=== PATIENT | male | born 1995 | race Caucasian/White ===

== ENCOUNTER 2020-10-13 17:30 | Outpatient (CLI) | payer OTHER, SELFPAY ==
--- NOTE | ~2020-10-13 | CT_ITS ---
EXAMINATION: CT IAC/mastoids BI wo con DATE: 10/13/2020 18:00 INDICATION: Left-sided cholesteatoma. TECHNIQUE: Computed tomography (CT) of the temporal bones was performed without intravenous contrast. Automated exposure control and iterative reconstruction technique were employed. The dose-length pro duct was 209.36 mGy-cm. COMPARISON: Sinuses CT 05/08/2014 FINDINGS: RIGHT TEMPORAL BONE: The internal auditory canal, cochlea, vestibule, and vestibular canal are normal. There is dehiscence of superior semicircular canal. The carotid canal, jugular bulb, facial nerve course, ossicles, tymp anic membrane, Prussak space, scutum, and external auditory canal are normal. There is a small right mastoid effusion. LEFT TEMPORAL BONE: The internal auditory canal, cochlea, vestibule, semicircular canals, vestibular aqueduct, and facial nerve course are normal. The ossicles are normal. Prussak space and scutum are normal. There is mate rial in the posterior mesotympanum and hypotympanum measuring 10 x 8 x 8 mm. The material abuts the t ympanic membrane inferiorly. There is a small volume of material in the external auditory canal. The mastoid air cells are clear. IMPRESSION: 1. 10 mm mass in the left posterior mesotympanum and hypotympanum, which may be a pars tensa choleste atoma. 2. Dehiscence of right superior semicircular canal. 3. Small right mastoid effusion. Reviewed, dictated and finalized at location A. IMPRESSION: 1. 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 2. Dehiscence of right superior semicircular canal. 3. Small right mastoid effusion.
== END 2020-10-13 17:31 | disposition home or self-care (01) ==
PROVIDERS: PCP Family Medicine; Visit Provider Otolaryngology
DX: H71.92 Unspecified cholesteatoma, left ear (principal)
CPT/HCPCS: 70480